=== PATIENT | female | born 1935 | race Caucasian/White ===

== ENCOUNTER 2018-11-26 20:06 | Emergency (ER) | payer MEDICARE ==
[~2018-11-26] VITALS: Ht 149.9 cm; Wt 61.0 kg
[~2018-11-26 20:06] MED LIST: LISI5TAB7 PO
--- NOTE | 2018-11-26 20:47 | NUR ---
Assumed care of patient. C/O dizzness and N/V since yesterday. Denies SOB, CP and ABD pain. Placed on NIBP, pulse ox and cardiac monitor technician. Family at bedside. Will continue to monitor.
--- NOTE | 2018-11-26 21:12 | NUR ---
report taken from MARÍA Daugherty at bedside.
[2018-11-26 21:16] LABS: BASOPHILS # (AUTO) 0.02 x10^3/uL (0-0.1); BASOPHILS % (AUTO) 0 % (0-1); EOSINOPHILS # (AUTO) 0.01 x10^3/uL (0-0.4); EOSINOPHILS % (AUTO) 0 % (1-7); LYMPHOCYTES # (AUTO) 0.42 x10^3/uL (1-3.4); LYMPHOCYTES % (AUTO) 4 % (22-44); MD NO; MEAN CORPUSCULAR HEMOGLOBIN 29.8 pg (27.0-34.8); MEAN CORPUSCULAR HGB CONC 33.4 g/dL (32.4-35.8); MEAN CORPUSCULAR VOLUME 89.2 fL (80-100); MEAN PLATELET VOLUME 9.2 fL (7.4-10.4); MONOCYTES # (AUTO) 0.32 x10^3/uL (0.2-0.8); MONOCYTES % (AUTO) 3 % (2-9); NEUTROPHILS # (AUTO) 10.44 x10^3/uL (1.8-6.8); NEUTROPHILS % (AUTO) 93 % (42-75); PLATELET COUNT 244 x10^3/uL (130-400); RED BLOOD COUNT 4.79 x10^6/uL (3.82-5.3); RED CELL DISTRIBUTION WIDTH 14.7 % (9.6-15.2)
[2018-11-26 21:22] LABS: ALBUMIN 3.6 g/dL (3.4-5.0); ANION GAP 8 mmol/L (5-15); CALCIUM 8.5 mg/dL (8.5-10.1); CHLORIDE 104 mmol/L (98-107)
[2018-11-26 21:26] LABS: ALANINE AMINOTRANSFERASE 30 U/L (12-78); ALKALINE PHOSPHATASE 85 U/L (45-117); BILIRUBIN,TOTAL 0.8 mg/dL (0.2-1.0); CREATININE 0.66 mg/dL (0.55-1.02); TOTAL PROTEIN 7.4 g/dL (6.4-8.2)
[2018-11-26 21:28] LABS: TROPONIN I < 0.015 ng/mL (0.000-0.045)
--- NOTE | 2018-11-26 21:29 | NUR ---
pt ambulated to bathroom with RN standby assist. clean catch urine obtained and sent to lab. pt back in bed, all monitors in place. family at bedside. pt a&ox4, resps even and unlabored. nsr on teletypesetter monitor with no ectopy noted. awaiting ua results and dispo.
[2018-11-26 21:47] LABS: CULTURE INDICATED? YES; MICROSCOPIC INDICATED
--- NOTE | 2018-11-26 22:11 | NUR ---
pt resting in gurney. pt aox4. resps even and unlabored. pt's family at bedside. all monitors in place. call light within reach.
[2018-11-26 22:35] VITALS: BP 146/68
--- NOTE | 2018-11-26 22:46 | NUR ---
PT GIVEN DC INSTRUCTIONS AND SCRIPT. PT EDUCATED DC MEDICATION WHICH IS ZOFRAN. PT DENIES N/V AT DC. PT AMB TO DC WITH STEADY GAIT. NO ACUTE DISTRESS AT DC.
== END 2018-11-26 22:43 | disposition home or self-care (01) ==
LOC: ED 21:51
DX: R11.2 Nausea with vomiting, unspecified (principal); I10 Essential (primary) hypertension
CPT/HCPCS: 36415; 71045; 80053; 81001; 83690; 84484; 85025; 87086; 93005; 99284